=== PATIENT | female | born 1985 | race Caucasian/White ===

== ENCOUNTER 2022-11-12 10:13 | Emergency (ER) | payer BC, SELFPAY ==
[2022-11-12 10:35] VITALS: BP 121/73; PULSE 85; RESP 16; TEMP 36.6; O2SAT 99
--- NOTE | 2022-11-12 10:39 | ED.URI ---
HPI - URI/Sore Throat General Chief Complaint: Upper Respiratory Infection Stated Complaint: sorethroat,bodyaches Time Seen by Provider: 11/12/22 10:41 Source: patient, RN notes reviewed and old records reviewed Mode of arrival: ambulatory Limitations: no limitations History of Present Illness HPI Narrative: 36 year old female who presents to [facility] with complaint of sore throat, body aches, and headaches for 2 day duration. 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 Patient reports that she has not had a fever but has had some chills and sweats and has fatigue. Patient reports that she has been taking Advil and NyQuil for her symptoms. MD elicited complaint: sore throat and other (bodyaches) Onset (ago): day(s) (2) Pain scale (0-10): 4 Able to tolerate fluids by mouth: Yes Treatments prior to arrival: ibuprofen and other (NyQuil) Related Data Allergies Allergy/AdvReac Type Severity Reaction Status Date / Time No Known Allergies Allergy Verified 11/12/22 10:32 Review of Systems Review of Systems: CONSTITUTIONAL: reports malaise, chills, sweats, no fevers noted reports fatigue. EYES: Denies visual changes, redness, or discharge. ENT: Reports rhinorrhea, congestion, sinus pain,no otalgia positive for sore throat. CARDIOVASCULAR: Denies chest pain, palpitations, or edema. RESPIRATORY: Reports no cough.? Denies dyspnea. GASTROINTESTINAL: Denies abdominal pain, nausea, vomiting, diarrhea SKIN: Denies rash or itching. MUSCULOSKELETAL: Reports myalgia. NEUROLOGIC: Reports headache. All systems reviewed & are unremarkable except as noted in HPI and below PMFSH Surgical History Surgical History (Updated 11/12/22 @ 10:57 by Estefanía Hudson NP) History of cholecystectomy Social History Social History (Updated 11/12/22 @ 10:58 by Estefanía Hudson NP) Smoking status: Never smoker Alcohol intake: current Alcohol use details: rare social Substance use type: does not use Living arrangements: with family Gender identity (if verbalized by the patient): Female Comments At time of signature, agree with nursing past medical, surgical, social and family history. There is no relevant family history pertinent to the presenting complaint Exam Narrative: GENERAL: Well-appearing, well-nourished, and in no acute distress. HEAD: Normocephalic EYES: PERRLA, conjunctivae clear ENT: Nares clear, turbinates edematous and erythematous, clear discharge. Mucous membranes moist. TM pearly celeste with dull light reflex bilaterally; no tragal tenderness. Oropharynx erythematous without lesions. Tonsils red enlarged and with white exudate, no drooling, no hoarseness, no trismus, uvula midline. NECK: Supple. lymphadenopathy CHEST: Clear to auscultation, breath sounds equal. No wheezing, rhonchi, rales, or stridor. No respiratory distress, speaks in full sentences. SAO2 99% on room air HEART: Regular rate and rhythm. No murmur heard. SKIN: Warm, dry, no rash. NEURO: Alert and oriented x3. PSYCH: Normal mood and affect Course Course Emergency Course: Patient is aware of diagnosis, understands and agrees to treatment plan.? Anticipatory guidance given.? Patient agrees to follow-up as directed and is aware of reasons to seek care at the emergency department. Portions of this record may have been created with voice recognition software Level of Care: Express Care Visit Vital Signs Vital signs: Vital Signs Temperature 36.6 C 11/12/22 10:35 Pulse Rate 85 11/12/22 10:35 Respiratory Rate 16 11/12/22 10:35 Blood Pressure 121/73 11/12/22 10:35 Pulse Oximetry 99 11/12/22 10:35 Oxygen Delivery Room Air 11/12/22 10:35 Temperature 36.6 C 11/12/22 10:35 Pulse Rate 85 11/12/22 10:35 Respiratory Rate 16 11/12/22 10:35 Blood Pressure 121/73 11/12/22 10:35 Pulse Oximetry 99 11/12/22 10:35 Oxygen Delivery Room Air 11/12/22
== END 2022-11-12 10:54 | disposition home or self-care (01) ==
PROVIDERS: Emergency Provider Registered Nurse; PCP Family Medicine
DX: J02.0 Streptococcal pharyngitis (principal); Z20.822 Contact with and (suspected) exposure to COVID-19
CPT/HCPCS: 87426; 87880; 99213; C9803; G0463

== ENCOUNTER 2023-01-08 10:22 | Emergency (ER) | payer BC, SELFPAY ==
[2023-01-08 10:41] VITALS: BP 106/71; PULSE 81; RESP 18; TEMP 36.5; O2SAT 98
--- NOTE | 2023-01-08 10:46 | ED.URI ---
HPI - URI/Sore Throat General Chief Complaint: Upper Respiratory Infection Stated Complaint: congestion,bodyaches Source: patient and RN notes reviewed History of Present Illness HPI Narrative: 37 yo F presents to urgent care with complaints of congestion and cough that started this morning. Pt states she was also having midsternal chest pain, worse with coughing this morning. Denies any chest pain now. Pt states she has had a bad sore throat the last couple days. Reports body aches at home. Denies any fevers, ear pain, ROUSE, abdominal pain, N/V/D. Pt has been attempting home remedies at home, such as drinking tea, without relief. Related Data Allergies Allergy/AdvReac Type Severity Reaction Status Date / Time No Known Allergies Allergy Verified 01/08/23 10:47 Review of Systems Review of Systems: Pertinent positives and pertinent negatives per HPI. [facility] Surgical History Surgical History (Updated 11/12/22 @ 10:57 by Estefanía Hudson NP) History of cholecystectomy Social History Social History (Updated 11/12/22 @ 10:58 by Estefanía Hudson NP) Smoking status: Never smoker Alcohol intake: current Alcohol use details: rare social Substance use type: does not use Living arrangements: with family Gender identity (if verbalized by the patient): Female Comments At the time of my signature, I reviewed and agree with the nursing past medical, surgical, social, and family history. There is no relevant family history pertinent to the patient complaint. Exam Narrative: GENERAL: This is a well-nourished, well-developed patient, in no apparent distress. HEAD: normocephalic, atraumatic. EYES: Sclera clear/white. Vision is grossly intact. EARS: External ears normal, auditory canals clear and without drainage, TMs normal without perforation. Hearing grossly intact. NOSE: External nose normal with no obvious nasal discharge, nares without redness, no rhinorrhea. THROAT: Mucous membranes moist, posterior pharynx erythremic. NECK: Neck supple, non-tender without lymphadenopathy, masses or thyromegaly. CARDIOVASCULAR: Regular rate and rhythm without murmurs, gallops, or rubs. RESPIRATORY: Clear to auscultation. Breath sounds equal bilaterally. No wheezes, rales, or rhonchi. SKIN: warm, intact with no suspicious lesions or rash, good texture and turgor. NEURO: awake, alert, and oriented to person, place and time. There were no obvious focal neurologic abnormalities. Course Course Level of Care: Express Care Visit Vital Signs Vital signs: Vital Signs Temperature 97.7 F 01/08/23 10:41 Pulse Rate 81 01/08/23 10:41 Respiratory Rate 18 01/08/23 10:41 Blood Pressure 106/71 01/08/23 10:41 Pulse Oximetry 98 01/08/23 10:41 Oxygen Delivery Room Air 01/08/23 10:41 Temperature 97.7 F 01/08/23 10:41 Pulse Rate 81 01/08/23 10:41 Respiratory Rate 18 01/08/23 10:41 Blood Pressure 106/71 01/08/23 10:41 Pulse Oximetry 98 01/08/23 10:41 Oxygen Delivery Room Air 01/08/23 10:41 reviewed MDM - URI/Sore Throat MDM Narrative Medical decision making narrative: After 24 hours on antibiotics throw tooth brush away and start using a new one. Increase your Vitamin C. Do not share drinks. Take Motrin alternating with Tylenol for pain and/or fever alternating every 4 hours. Increase fluids, avoid caffeine. Take a probiotic daily or eat a low sugar yogurt while taking the antibiotic. Follow up with Primary provider if not getting better this week Differential Diagnosis Differential diagnosis: Likely upper respiratory infection, viral infection and pharyngitis Lab Data Attestation: I reviewed the patient's lab results. Labs: Strep Screen Positive Group A Strep *(Reference Range: Negative)* Critical Care Time Critical Care Time Critical Care Time: No Discharge Plan Discharge Clinical Impression: Phary
== END 2023-01-08 11:24 | disposition home or self-care (01) ==
PROVIDERS: Emergency Provider Nurse Practitioner Family; PCP Family Medicine
DX: J02.0 Streptococcal pharyngitis (principal)
CPT/HCPCS: 87880; 99213; G0463

== ENCOUNTER 2023-02-02 12:22 | Emergency (ER) | payer BC, SELFPAY ==
--- NOTE | 2023-02-02 12:29 | ED.SKABFB ---
HPI - Skin/Abscess/Foreign Bdy General Chief complaint: Skin/Abscess/Foreign Body Stated complaint: insect bite Time Seen by Provider: 02/02/23 12:29 Source: patient Mode of arrival: ambulatory Limitations: no limitations History of Present Illness HPI narrative: Patient is a 37-year-old female who presents with a tick bite behind left knee. Patient states it happened 2 days ago and continues to be red, warm and hard. States it was itchy but is no longer itchy, used baking soda paste 2 nights ago. Reports it feels like pressure but not painful. Denies any fever, chills, drainage from wound, redness streaking up leg or down leg or swelling to knee joint Related Data Allergies Allergy/AdvReac Type Severity Reaction Status Date / Time No Known Allergies Allergy Verified 02/02/23 12:26 Review of Systems Review of Systems: All systems reviewed & are unremarkable except as noted in HPI and below Constitutional: Constitutional: Denies body ache(s), Denies chills, Denies fatigue, Denies fever(s), Denies headache(s), Denies malaise and Denies weakness Eyes: Eyes: Denies blurry vision, Denies irritation and Denies loss of vision ENT: Denies otalgia, Denies headache(s), Denies nasal discharge, Denies sinus pain and Denies sore throat Cardiovascular: Cardiovascular: Denies chest pain, Denies irregular heart rhythm and Denies dyspnea Respiratory: Respiratory: Denies dyspnea Gastrointestinal: Gastrointestinal: Denies abdominal pain, Denies melena, Denies hematochezia, Denies diarrhea, Denies nausea and Denies vomiting Musculoskeletal: Musculoskeletal: Denies back pain, Denies myalgias and Denies arthralgias Integumentary/Breasts: Skin/Breast: Denies pruritus, Reports lesions, Reports erythema and Denies rash Neurologic: Denies headache(s), Denies loss of vision and Denies weakness Psychiatric: Psychiatric: Reports no additional psychiatric complaints Endocrine: Endocrine: Denies fatigue PMF Surgical History Surgical History (Updated 11/12/22 @ 10:57 by Estefanía Hudson NP) History of cholecystectomy Social History Social History (Updated 11/12/22 @ 10:58 by Estefanía Hudson NP) Smoking status: Never smoker Alcohol intake: current Alcohol use details: rare social Substance use type: does not use Living arrangements: with family Gender identity (if verbalized by the patient): Female Comments At time of signature, agree with nursing past medical, surgical, social and family history. There is no relevant family history pertinent to the presenting complaint. Exam Const: General: cooperative, healthy appearing, comfortable, no acute distress and well nourished Nutritional Appearance: well nourished Orientation/consciousness: patient oriented x3 Limitations: no limitations HENMT: Head: normal to inspection, normocephalic and atraumatic Ears: hearing grossly normal bilaterally and external ears normal Face/Nose/Sinus: Normal external nose present, normal facial exam and face symmetric Face and sinus: normal facial exam and face symmetric Mouth: Yes lip normal Eyes: General: appearance normal, both eyes and all related structures Alignment and Position: alignment normal and position normal Periorbital: periorbital findings normal Eyelids: eyelids normal Pupils: Equal, round and reactive pupils present EOM: EOMs intact bilaterally Neck: Neck: normal visual inspection, full ROM and supple Chest: Chest palpation & inspection: normal inspection of the chest Resp: Effort & Inspection: normal respiratory effort and able to speak in complete sentences Auscultation: clear to auscultation bilaterally Cardio: Rate: regular rate Rhythm: regular rhythm Heart sounds: S1 normal heart sound present and S2 normal heart sound present GI: Inspection: normal to inspection Skin: General skin exam: normal color and no rashes or lesions noted Lesions: lesion noted Full body images: 1. 1.5x0.5 cm area of
[2023-02-02 12:30] VITALS: BP 111/75; PULSE 79; RESP 16; TEMP 36.6; O2SAT 98
== END 2023-02-02 12:49 | disposition home or self-care (01) ==
PROVIDERS: Emergency Provider Nurse Practitioner Family; PCP Family Medicine
DX: L03.116 Cellulitis of left lower limb (principal); S80.262A Insect bite (nonvenomous), left knee, initial encounter; W57.XXXA Bitten or stung by nonvenomous insect and other nonvenomous arthropods, initial encounter
CPT/HCPCS: 99213; G0463

== ENCOUNTER 2023-02-08 10:31 | Emergency (ER) | payer BC, SELFPAY ==
[2023-02-08 10:43] VITALS: BP 107/74; PULSE 60; RESP 16; TEMP 36.7; O2SAT 100
--- NOTE | 2023-02-08 10:50 | ED.SKABFB ---
HPI - Skin/Abscess/Foreign Bdy General Chief complaint: Skin/Abscess/Foreign Body Stated complaint: rash Time Seen by Provider: 02/08/23 10:51 Source: patient Mode of arrival: ambulatory Limitations: no limitations History of Present Illness HPI narrative: 37 y/o female presented for c/o rash to left arm and chin, first noticed this morning. Rash is itchy. Denies pain or drainage. Reports a few round areas to the left arm and a cluster under the chin. Has been in the [place] 2 days ago and last week. Also completed antibiotic cefuroxime yesterday after insect bite to the left knee which she reports is healing. Not taking anything for symptoms. Denies lip, tongue, or throat swelling, shortness of breath or wheezing. Denies changes to soap, detergent, lotion, or any other exposures. No one else in the house or any contacts with similar symptoms. Related Data Allergies Allergy/AdvReac Type Severity Reaction Status Date / Time No Known Allergies Allergy Verified 02/08/23 10:34 Review of Systems Review of Systems: CONSTITUTIONAL: Denies body aches, fever, chills, or sweats. EYES: Denies visual changes, redness, or discharge. ENT: Denies rhinorrhea, congestion CARDIOVASCULAR: Denies chest pain, palpitations, or edema. RESPIRATORY: Denies cough or dyspnea. GASTROINTESTINAL: Denies abdominal pain, nausea, vomiting, or diarrhea. SKIN: per HPI MUSCULOSKELETAL: Denies back pain, joint pain, or myalgia. NEUROLOGIC: Denies headache, numbness, tingling, or weakness. [facility] Past Medical History Medical History (Updated 02/08/23 @ 11:04 by Negra Maldonado APRN) No pertinent past medical history Surgical History Surgical History History of cholecystectomy Social History Social History Smoking status: Never smoker Alcohol intake: current Alcohol use details: rare social Substance use type: does not use Living arrangements: with family Gender identity (if verbalized by the patient): Female Comments At time of signature, I have reviewed and agree with nursing past medical, surgical, social and family history unless otherwise noted. Please see nursing chart for further information. There is no relevant family history pertinent to the presenting complaint Exam Narrative: GENERAL: Well-appearing HEAD: Normocephalic, atraumatic. EYES: conjunctivae clear, and EOMI. ENT: Mucous membranes moist. Oropharynx without edema, erythema or lesions. NECK: Supple. No lymphadenopathy CHEST: Clear to auscultation. HEART: Regular rate and rhythm. SKIN: Warm, dry. Few scattered pinpoint vesicles to the left forearm, right upper arm, and erythema surrounding lesions on chin consistent with contact dermatitis, no induration, fluctuance, or drainage. Nontender. NEURO: Alert and oriented x3. Course Course Emergency Course: Patient is aware of diagnosis, understands and agrees to treatment plan. Anticipatory guidance given. Patient agrees to follow-up as directed and is aware of reasons to seek care at the emergency department. Portions of this record may have been created with voice recognition software Level of Care: Express Care Visit Vital Signs Vital signs: Vital Signs Temperature 98.1 F 02/08/23 10:43 Pulse Rate 60 02/08/23 10:43 Respiratory Rate 16 02/08/23 10:43 Blood Pressure 107/74 02/08/23 10:43 Pulse Oximetry 100 02/08/23 10:43 Oxygen Delivery Room Air 02/08/23 10:43 Temperature 98.1 F 02/08/23 10:43 Pulse Rate 60 02/08/23 10:43 Respiratory Rate 16 02/08/23 10:43 Blood Pressure 107/74 02/08/23 10:43 Pulse Oximetry 100 02/08/23 10:43 Oxygen Delivery Room Air 02/08/23 10:43 Reviewed MDM - Skin/Abscess/Foreign Bdy MDM Narrative Medical decision making narrative: Discussed physical exam findings c/w poison earlene. Advised supportive measu
== END 2023-02-08 11:02 | disposition home or self-care (01) ==
PROVIDERS: Emergency Provider Nurse Practitioner Family; PCP Family Medicine
DX: L25.9 Unspecified contact dermatitis, unspecified cause (principal)
CPT/HCPCS: 99213; G0463

== ENCOUNTER 2023-06-17 11:28 | Emergency (ER) | payer BC, SELFPAY ==
[2023-06-17 11:39] VITALS: BP 113/75; PULSE 102; RESP 18; TEMP 37.1; O2SAT 98
--- NOTE | 2023-06-17 12:00 | ED.URI ---
HPI - URI/Sore Throat General Chief Complaint: Upper Respiratory Infection Stated Complaint: Strep symptoms Time Seen by Provider: 06/17/23 12:05 Source: patient and RN notes reviewed Mode of arrival: ambulatory Limitations: no limitations History of Present Illness HPI Narrative: 37-year-old female presents concern for sore throat. Reports started yesterday. She reports she has had some body aches. 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 She has not taken any medicine for symptoms. She denies headache or stomachache MD elicited complaint: sore throat Related Data Allergies Allergy/AdvReac Type Severity Reaction Status Date / Time No Known Allergies Allergy Verified 06/17/23 11:44 Review of Systems Review of Systems: CONSTITUTIONAL: Denies malaise, chills, sweats, or fever. EYES: Denies visual changes, redness, or discharge. ENT: Denies rhinorrhea, congestion, sinus pain, otalgia. Reports sore throat. CARDIOVASCULAR: Denies chest pain, palpitations, or edema. RESPIRATORY: Denies cough. Denies dyspnea. GASTROINTESTINAL: Denies abdominal pain, nausea, vomiting, diarrhea SKIN: Denies rash or itching. MUSCULOSKELETAL: Reports myalgia. NEUROLOGIC: Denies headache. All systems reviewed & are unremarkable except as noted in HPI and below PMFSH Past Medical History Medical History (Updated 06/17/23 @ 12:01 by Nichole Ch NP) No pertinent past medical history Surgical History Surgical History History of cholecystectomy Social History Social History Smoking status: Never smoker Alcohol intake: current Alcohol use details: rare social Substance use type: does not use Living arrangements: with family Gender identity (if verbalized by the patient): Female Comments At time of signature, agree with nursing past medical, surgical, social and family history. There is no relevant family history pertinent to the presenting complaint Exam Narrative: GENERAL: Well-appearing, well-nourished, and in no acute distress. HEAD: Normocephalic EYES: PERRLA, conjunctivae clear ENT: Nares clear. Mucous membranes moist. TM pearly celeste with sharp light reflex bilaterally; no tragal tenderness. Oropharynx not erythematous without lesions. Tonsils not enlarged and without exudate, no drooling, no hoarseness, no trismus, uvula midline. NECK: Supple. No lymphadenopathy CHEST: Clear to auscultation, breath sounds equal. No wheezing, rhonchi, rales, or stridor. No respiratory distress, speaks in full sentences. HEART: Regular rate and rhythm. No murmur heard. SKIN: Warm, dry, no rash. NEURO: Alert and oriented x3. PSYCH: Normal mood and affect Course Course Emergency Course: Patient is aware of diagnosis, understands and agrees to treatment plan. Anticipatory guidance given. Patient agrees to follow-up as directed and is aware of reasons to seek care at the emergency department. Portions of this record may have been created with voice recognition software Level of Care: Express Care Visit Vital Signs Vital signs: Vital Signs Temperature 98.7 F 06/17/23 11:39 Pulse Rate 102 H 06/17/23 11:39 Respiratory Rate 18 06/17/23 11:39 Blood Pressure 113/75 06/17/23 11:39 Pulse Oximetry 98 06/17/23 11:39 Oxygen Delivery Room Air 06/17/23 11:39 Temperature 98.7 F 06/17/23 11:39 Pulse Rate 102 H 06/17/23 11:39 Respiratory Rate 18 06/17/23 11:39 Blood Pressure 113/75 06/17/23 11:39 Pulse Oximetry 98 06/17/23 11:39 Oxygen Delivery Room Air 06/17/23 11:39 Reviewed. MDM - URI/Sore Throat MDM Narrative Medical decision making narrative: Differential diagnosis considered: Richards virus, strep pharyngitis, allergic rhinitis, upper respiratory tract infection, sinusitis, rhinosinusitis, nasopharyngitis. viral pharyngitis, otitis media, otitis externa, pneumonia, bronchitis, vi
== END 2023-06-17 12:22 | disposition home or self-care (01) ==
PROVIDERS: Emergency Provider Nurse Practitioner; PCP Family Medicine
DX: J02.9 Acute pharyngitis, unspecified (principal); J06.9 Acute upper respiratory infection, unspecified; Z20.822 Contact with and (suspected) exposure to COVID-19
CPT/HCPCS: 87081; 87426; 87804; 87880; 99213; C9803; G0463

== ENCOUNTER 2023-12-17 12:20 | Emergency (ER) | payer BC, SELFPAY ==
[2023-12-17 12:44] VITALS: BP 98/67; PULSE 104; RESP 15; TEMP 36.6; O2SAT 98
--- NOTE | 2023-12-17 12:52 | ED.URI ---
HPI - URI/Sore Throat General Chief Complaint: Upper Respiratory Infection Stated Complaint: SORE THROAT Time Seen by Provider: 12/17/23 12:52 Source: patient, RN notes reviewed and old records reviewed Mode of arrival: ambulatory Limitations: no limitations History of Present Illness HPI Narrative: 38-year-old female presents to the [facility] with complaints of a sore throat since yesterday Denies any other complaints Related Data Home Medications Medication Instructions Recorded Confirmed No Home Medications 12/17/23 12/17/23 Allergies Allergy/AdvReac Type Severity Reaction Status Date / Time No Known Allergies Allergy Verified 12/17/23 14:55 Review of Systems Review of Systems: All systems reviewed & are unremarkable except as noted in HPI and below Constitutional: Constitutional: Reports no additional constitutional complaints Eyes: Eyes: Reports no additional eye complaints ENT: Reports as per HPI and Reports sore throat Cardiovascular: Cardiovascular: Reports no additional cardiovascular complaints, Denies chest pain and Denies dyspnea Respiratory: Respiratory: Reports no additional respiratory complaints, Denies chest congestion, Denies cough and Denies dyspnea Gastrointestinal: Gastrointestinal: Reports no additional gastrointestinal complaints, Denies abdominal pain, Denies nausea and Denies vomiting Musculoskeletal: Musculoskeletal: Reports no additional musculoskeletal complaints Integumentary/Breasts: Skin/Breast: Reports system reviewed and no additional complaints, except as docu Neurologic: Reports system reviewed and no additional complaints, except as documented Psychiatric: Psychiatric: Reports no additional psychiatric complaints Allergic/Immunologic: Allergic/Immunologic: Reports no additional allergic/immunologic complaints PMFSH Past Medical History Medical History No pertinent past medical history Surgical History Surgical History History of cholecystectomy Social History Social History Smoking status: Never smoker Alcohol intake: current Alcohol use details: rare social Substance use type: does not use Living arrangements: with family Gender identity (if verbalized by the patient): Female Comments At the time of my signature, I reviewed and agree with the nursing past medical, surgical, social, and family history. There is no relevant family history pertinent to the patient complaint. Exam Const: General: cooperative, healthy appearing, comfortable, no acute distress, well developed, alert and well nourished Nutritional Appearance: well nourished Orientation/consciousness: patient oriented x3 Limitations: no limitations HENMT: Head: normal to inspection Ears: hearing grossly normal bilaterally, external ears normal, TM's normal bilaterally, EAC's normal, mastoids normal and no periauricular adenopathy Face/Nose/Sinus: Normal external nose present, Normal nares present, Normal nasal mucous membranes and turbinates present, No nasal discharge present, normal facial exam and face symmetric Face and sinus: normal facial exam and face symmetric Throat: posterior oropharynx normal, tonsils normal, uvula midline and no uvular edema Eyes: General: appearance normal, both eyes and all related structures Alignment and Position: alignment normal Periorbital: periorbital findings normal Pupils: Equal, round and reactive pupils present EOM: EOMs intact bilaterally Neck: Neck: normal visual inspection, full ROM, no lymphadenopathy and no meningeal signs Chest: Chest palpation & inspection: normal inspection of the chest Resp: Effort & Inspection: normal respiratory effort and able to speak in complete sentences Auscultation: clear to auscultation bilaterally, no crackles, no rales, no rhonchi and no
== END 2023-12-17 13:01 | disposition home or self-care (01) ==
PROVIDERS: Emergency Provider Nurse Practitioner; PCP Family Medicine
DX: J02.9 Acute pharyngitis, unspecified (principal)
CPT/HCPCS: 87081; 87880; 99213; G0463

== ENCOUNTER 2024-12-28 15:23 | Emergency (ER) | payer BC, SELFPAY ==
[2024-12-28 15:34] VITALS: BP 113/78; PULSE 72; RESP 16; TEMP 37.1; O2SAT 100
--- NOTE | 2024-12-28 15:57 | ED.URI ---
HPI - URI/Sore Throat General Chief Complaint: Upper Respiratory Infection Stated Complaint: SINUS/COUGH/FEVER/BODY ACHES/WEAKNESS Time Seen by Provider: 12/28/24 15:50 Source: patient and RN notes reviewed Mode of arrival: ambulatory Limitations: no limitations History of Present Illness HPI Narrative: 39-year-old female presents Express Care complaining of upper respiratory symptoms for approximately 1 month. Patient reports having a productive cough, malaise, cough, congestion, sinus pressure, mucopurulent discharge does not getting better over the last month. Patient has tried [id number] medicine without relief. Patient denies any fevers, body aches, chills, nausea, vomiting, diarrhea, chest pain, shortness of breath. Patient states her cough is worse at night. Related Data Allergies Allergy/AdvReac Type Severity Reaction Status Date / Time No Known Allergies Allergy Verified 12/28/24 15:45 Review of Systems Review of Systems: CONSTITUTIONAL: Denies fever, chills, body aches, or sweats. Positive for malaise. EYES: Denies visual changes, redness, or discharge. ENT: Positive for congestion and sinus pressure. Negative for rhinorrhea, sore throat, or otalgia. CARDIOVASCULAR: Denies chest pain, palpitations, or edema. RESPIRATORY: Positive for cough. Negative for dyspnea or wheezing. GASTROINTESTINAL: Denies abdominal pain, nausea, vomiting, or diarrhea. GENITOURINARY: Denies dysuria or hematuria. SKIN: Denies rash or itching. MUSCULOSKELETAL: Denies back pain, joint pain, or myalgia. NEUROLOGIC: Denies headache, numbness, or weakness. PSYCHIATRIC: Denies anxiety or depression. All other systems reviewed are negative, except as documented in HPI. [facility] Past Medical History Medical History No pertinent past medical history Surgical History Surgical History History of cholecystectomy Social History Social History Smoking status: Never smoker Alcohol intake: current Alcohol use details: rare social Substance use type: does not use Living arrangements: with family Gender identity (if verbalized by the patient): Female Comments At the time of my signature, I reviewed and agree with the nursing past medical, surgical, social, and family history. There is no relevant family history pertinent to the patient complaint. Exam Narrative: GENERAL: This is a well-nourished, well-developed adult, in no apparent distress. They are non ill-appearing, nontoxic appearing. Patient appears tired. HEAD: normocephalic, atraumatic. EYES: Sclera clear/white. Vision is grossly intact. Conjunctiva normal bilaterally. Extraocular movements intact. EARS: External ears normal, auditory canals clear and without drainage, TMs without erythema or perforation. Hearing grossly intact. NOSE: External nose normal with no obvious nasal discharge, nasal turbinates erythematous with exudate. Abnormal transilluminate of maxillary sinuses. Sinus tenderness to palpation to the maxillary and frontal sinuses. THROAT: Mucous membranes moist, posterior pharynx without redness or swelling, exudate. Uvula is midline. Postnasal drip present. NECK: Neck supple, non-tender without lymphadenopathy, masses or thyromegaly. CARDIOVASCULAR: Regular rate and rhythm without murmurs, gallops, or rubs. RESPIRATORY: Clear to auscultation. Breath sounds equal bilaterally. No wheezes, rales, or rhonchi. Respiratory rate normal, respiratory effort nonlabored, no respiratory distress SKIN: warm, Dry, intact with no suspicious lesions or rash, good texture and turgor. NEURO: awake, alert, and oriented to person, place and time. There were no obvious focal neurologic abnormalities. EXTREMITIES: No joint tenderness, effusion, or edema noted. BACK: Nontender without deformity. Course Course Emergency Course: Portions of this record may have been created with voice recognition software Level of Care: Express Care Visit Vital Signs Vital signs: Vital Signs Temperature 98.8 F 12/28/24 15:34 Pulse Rate 72 12/28/24 15:34 Respiratory Rate 16 12/28/24 15:34 Blood Pressure 113/78 12/28/24 15:34 Pulse Oximetry 100 12/28/24 15:34 Temperature 98.8 F 12/28/24 15:34 Pulse Rate 72 12/28/24 15:34 Respiratory Rate 16 12/28/24 15:34 Blood Pressure 113/78 12/28/24 15:34 Pulse Oximetry 100 12/28/24 15:34 MDM - URI/Sore Throat MDM Narrative Medical decision making narrative: Given patient's length of symptoms is likely she has developed a bacterial sinusitis. Will treat empirically with Augmentin. Discussed physical exam findings. Advised supportive measures and signs/symptoms to go to the ER. Pt is appropriate for outpt treatment and f/u. Differential Diagnosis Differential diagnosis: Likely upper respiratory infection, sinusitis and viral infection Discharge Plan Discharge Clinical Impression: Sinusitis Qualifiers: Sinusitis location: unspecified location Chronicity: acute Recurrence: non-recurrent Qualified Code(s): J01.90 - Acute sinusitis, unspecified Patient Disposition: Home Condition: Stable Instructions: Antibiotic Form, Sinusitis (ED) Additional Instructions: Take the antibiotics as directed and complete the course even if you start to feel better. You may use a Neti pot saline rinse 3 times a day with lukewarm distilled water Continue to take Tylenol or Motrin for pain. Use a humidifier or vaporizer at night. Drink plenty of water. 8-10 glasses per day. Use flonase 2 times per day for 5 days then as needed Take mucinex 2 times per day and be sure to take with 8oz of water. Follow up with Primary provider in 3-5 days Please go to the ER if he develops any difficulty breathing, worsening symptoms, or any other concerns Patient Language: French Prescriptions: New amoxicillin-pot clavulanate 875-125 mg tablet 1 tablet PO Q12H 7 Days Qty: 14 0RF Follow-up/Referrals: Len,Scott Meng MD [Primary Care Provider] - Time of Disposition: 16:01
== END 2024-12-28 16:05 | disposition home or self-care (01) ==
PROVIDERS: PCP Family Medicine
DX: J01.90 Acute sinusitis, unspecified (principal)
CPT/HCPCS: 99213; G0463

== ENCOUNTER 2025-02-13 13:22 | Emergency (ER) | payer BC, SELFPAY ==
[2025-02-13 13:26] VITALS: BP 106/73; PULSE 76; RESP 16; TEMP 36.4; O2SAT 99
--- NOTE | 2025-02-13 13:32 | ED_ITS ---
HPI - Skin/Abscess/Foreign Bdy General Chief complaint: Skin/Abscess/Foreign Body Stated complaint: Bug Bite Time Seen by Provider: 02/13/25 13:32 Source: patient Mode of arrival: ambulatory Limitations: no limitations History of Present Illness HPI narrative: 39 yo F presents with itchy bug bite to back for 1 day. No pain. Wanted to make sure doesn't have spider bite that needs abx. Has been working outdoors at [employer] All systems reviewed and negative except as noted above. Related Data Allergies Allergy/AdvReac Type Severity Reaction Status Date / Time No Known Allergies Allergy Verified 12/28/24 15:45 Review of Systems Review of Systems: CONSTITUTIONAL: Denies fever, chills, or sweats. EYES: Denies visual changes, redness, or discharge. ENT: Denies rhinorrhea, congestion, sore throat, or otalgia. CARDIOVASCULAR: Denies chest pain, palpitations, or edema. RESPIRATORY: Denies cough or dyspnea. GASTROINTESTINAL: Denies abdominal pain, nausea, vomiting, or diarrhea. GENITOURINARY: Denies dysuria or hematuria. SKIN: Denies rash. Reports itchy bug bite to back MUSCULOSKELETAL: Denies back pain, joint pain, or myalgia. NEUROLOGIC: Denies headache, numbness, or weakness. PSYCHIATRIC: Denies anxiety or depression. All other systems reviewed are negative, except as documented in HPI. PMF[facility] Past Medical History Medical History No pertinent past medical history Surgical History Surgical History History of cholecystectomy Social History Social History Smoking status: Never smoker Alcohol intake: current Alcohol use details: rare social Substance use type: does not use Living arrangements: with family Gender identity (if verbalized by the patient): Female Comments At time of signature, agree with nursing past medical, surgical, social and family history. There is no relevant family history pertinent to the presenting complaint. Exam Narrative: GENERAL: This is a well-nourished, well-developed patient, in no apparent distress. HEAD: normocephalic, atraumatic. EYES: PERRL. Sclera clear/white. Vision is grossly intact. EARS: External ears normal NOSE: External nose normal NECK: Neck supple, non-tender without lymphadenopathy, masses or thyromegaly. CARDIOVASCULAR: Regular rate and rhythm without murmurs, gallops, or rubs. RESPIRATORY: Clear to auscultation. Breath sounds equal bilaterally. No wheezes, rales, or rhonchi. SKIN: warm, Dry, intact with no suspicious lesions or rash, good texture and turgor. 1 cm erythematous papule to middle back without fluctuance, tenderness, warmth. No bull's eye. NEURO: awake, alert, and oriented to person, place and time. There were no obvious focal neurologic abnormalities. EXTREMITIES: No joint tenderness, effusion, or edema noted. Course Course Level of Care: Express Care Visit Vital Signs Vital signs: Vital Signs Temperature 36.4 C L 02/13/25 13:26 Pulse Rate 76 02/13/25 13:26 Respiratory Rate 16 02/13/25 13:26 Blood Pressure 106/73 02/13/25 13:26 Pulse Oximetry 99 02/13/25 13:26 Oxygen Delivery Room Air 02/13/25 13:26 Temperature 36.4 C L 02/13/25 13:26 Pulse Rate 76 02/13/25 13:26 Respiratory Rate 16 02/13/25 13:26 Blood Pressure 106/73 02/13/25 13:26 Pulse Oximetry 99 02/13/25 13:26 Oxygen Delivery Room Air 02/13/25 13:26 Reviewed MDM - Skin/Abscess/Foreign Bdy MDM Narrative Medical decision making narrative: Will prescribe triamcinolone, recommend daily antihistamine such as Claritin or Zyrtec to treat local reaction from insect bite. There are no signs of infection. Patient is well-appearing, nontoxic. Patient agrees with plan of care. Discharge Plan Discharge Clinical Impression: Insect bite of back Qualifiers: Encounter type: initial encounter Patient Disposition: Home Condition: Stable Instructions: Antibiotic Form, Insect Bite or Sting (ED) Additional Instructions: Apply steroid cream sparingly to affected area 2 to 3 times a day. Taking [id number] antihistamine daily such as Claritin or Zyrtec. Follow-up your primary care physician as needed. Patient Language: Maltese Prescriptions: New triamcinolone acetonide 0.1 % cream 1 applic topical BID PRN (Reason: insect bite) Qty: 30 0RF No Action amoxicillin-pot clavulanate 875-125 mg tablet 1 tablet PO Q12H 7 Days Qty: 14 0RF Follow-up/Referrals: PHYSICIAN,FINANCIAL SYSTEMS ANALYST [Primary Care Provider] - Time of Disposition: 13:36
== END 2025-02-13 13:39 | disposition home or self-care (01) ==
PROVIDERS: Emergency Provider Nurse Practitioner Family
DX: S20.469A Insect bite (nonvenomous) of unspecified back wall of thorax, initial encounter (principal); W57.XXXA Bitten or stung by nonvenomous insect and other nonvenomous arthropods, initial encounter
CPT/HCPCS: 99213; G0463